=== PATIENT | female | born 1985 | race Caucasian/White ===

== ENCOUNTER 2019-07-20 22:17 | Inpatient (IN) | payer MEDICAID, SELFPAY ==
[2014-02-19 20:16] VITALS: BMI 21.2
[2019-07-20 21:44] VITALS: BMI 29.1
[2019-07-20 22:13] LABS: ROM Internal Control Test YES-OK TO RESULT pt. (Internal QC)
[2019-07-20 22:14] LABS: ROM Patient Test POSITIVE (Negative)
[2019-07-20] MEDS: Lactated Ringers 1,000 ML 50 ML IV (23:00)
[2019-07-20 23:48] LABS: Absolute Lymphocyte Count 2.04 X10^3/uL (0.83-4.51); Absolute Neutrophil Count 9.7 X10^3/uL (2.0-7.7); Basophil# 0.03 X10^3/uL; Basophil% 0.2 % (0-1); Eosinophil# 0.09 X10^3/uL; Eosinophils% 0.7 % (0-5); Hematocrit 34.3 % (37-47); Hemoglobin 11.4 g/dL (12.0-15.0); Lymphocyte # 2.04 X10^3/ul (4.0); Lymphocyte % 15.8 % (19-41); Mean Corp Hgb Conc 33.2 g/dL (32-36); Mean Corpuscular Volume 90.3 fL (81-99); Mean Platelet Vol. 11.1 fl (6.2-12.0); Monocyte# 0.96 X10^3/uL; Monocyte% 7.4 % (0-10); NRBC Flagged by Analyzer 0 % (0-5); Neutrophil # 9.68 X10^3/uL (2.7-7.7); Platelet Count 201 K/mm3 (150-450); RBC Distribution Width CV 13.3 % (11.6-14.6); RBC Distribution Width SD 43.9 fl (35.1-43.9); White Blood Count 12.9 K/mm3 (4.4-11.0)
[2019-07-21] MEDS: Oxytocin 30 units/NS 500 ml 30 UNITS/500 ML IV.SOLN IV (01:25)
[2019-07-21] MEDS: Lactated Ringers 500 ML 999 ML IV (04:33)
--- NOTE | 2019-07-21 05:02 | HP.PCM_ITS ---
History Date of Admission: 07/20/19 Final CJ: 07/28/19 Final CJ Source: US <20 weeks Gestational age: 39 Weeks and 0 Days History of this : This is a 34 year-old, 3 para 2 who presents at 38-6/7 weeks on 07/20/2019 complaining of rupture membranes. She was found to be ruptured. She is not having regular contractions. She denied any gross vaginal bleeding or leaking of fluid. was complicated to date by an unexplained elevated AFP. Patient has been receiving nonstress test. She had an ultrasound at 36 weeks which revealed an AGA fetus with normal amniotic fluid volume. Previous obstetrical history is significant for 2 Full-term vaginal deliveries in the past, 6 pounds 2 ounces and 6 pounds 4 ounces without significant complications. She was induced due to oligohydramnios with both of them. Allergies No Known Allergies Allergy (Verified 07/21/19 00:26) Home Medications: Home Medications Prenatabs FA 1 tab PO DAILY 07/20/19 Smoking Status: Never smoker Number of Fetus(es): 1 NST - FHR Rate Baby A Baseline: normal Variability:: Moderate Accelerations:: 15 x 15 FHR Category:: Category I - at admission Uterine Activity:: no regular ctxs upon admission History Past Pregnancies: Past Pregnancies Delivery Date Name GA/ Weeks Outcome Route Wt Infant Sex Labor Length Anesthesia Delivery Location Provider FOB Expected Infant Delivery Method: Spontaneous Vaginal Review of Systems Constitutional: Denies: Chills, Fever Eyes: Denies: Blurred vision Cardiovascular: Denies: Chest Pain Respiratory: Denies: Cough Gastrointestinal: Denies: Abdominal Pain, Nausea Genitourinary: Denies: Dysuria Neurological: Denies: Blurred vision, Change in Speech, Slurred speech, Confusion Physical Exam General: Alert, Cooperative, No apparent distress Cardiovascular: Regular rate Lungs: Clear to auscultation Abdomen: Soft, Non-Distended, Gravid Extremities:: No edema Neurological: Cranial nerves II-XII grossly intact CITIZEN PARTICIPATION SPECIALIST: Normal external genitalia Estimated gestational size: Appropriate for gestational size Presentation: Cephalic Cervix Dilation (cm): 2 - at admission Station: -2 Effacement (%): 70 Assessment/Plan This is a 34 year-old, 3 para 2 at 38-6/7 weeks upon admission, now at 39 weeks with spontaneous rupture membranes. Patient did not enter spontaneous labor. Pitocin induction was initiated. Risk benefits and alternatives to this were discussed with the patient, questions were answered to her satisfaction she desired to proceed. Estimated weight is less than 4000 g clinically and pelvis is clinically adequate to expect vaginal delivery. May have epidural, Nubain or nitrous oxide as needed for pain control.
[2019-07-21] MEDS: fentaNYL-bupivacaine (epidural) 100 ML BAG EPIDURAL (05:31)
[2019-07-21] MEDS: Lactated Ringers 1,000 ML 200 ML IV (05:53)
[2019-07-21] MEDS: Oxytocin 30 units/NS 500 ml 30 UNITS/500 ML IV.SOLN 334 UNITS IV (10:20)
--- NOTE | 2019-07-21 10:32 | PCM.OPRPT ---
Vaginal Delivery Maternal Presentation: Medically Indicated Induction Method of Induction: Pitocin Medical Reason for Induction: Premature Rupture of Membranes Amniotic Membrane Rupture Type: Spontaneous at home Amniotic Fluid Description: Clear Final CJ: 07/28/19 Final CJ Source: US <20 weeks Gestational age: 39 Weeks and 0 Days Date of Procedure: 07/21/19 Pre-Operative Diagnosis: labor Post-Operative Diagnosis: same Surgery/ Procedure Performed: Spontaneous Vaginal Delivery Type of Anesthesia: Epidural Description of Procedure: A vigorous male infant was delivered [FAITH] over intact perineum. The remainder the infant was delivered with maternal pushing and gentle traction only in less than 15 seconds. The Pitocin infusion was initiated for active management of the third stage. The cord was clamped and cut [after 1 minute]. The infant was attended to by the waiting nursing staff. The placenta was delivered spontaneously and intact. The cervix and vagina were intact. Sponge and needle counts were correct. A vaginal sweep was completed by me. Presentation: FAITH Placental Delivery Description: Spontaneous Placenta Disposition: [facility] Cord Vessel Description: 3 Vessels Cord Entanglement: None Drain: Colon to straight drain Estimated Blood Loss: 200 Infant A gender: Male (1 minute): 8 (5 minute): 9 Episiotomy Description: None Laceration: None Medications given after delivery: IV Pitocin Complications: None
[2019-07-21 15:30] VITALS: BP 126/64; PULSE 94; RESP 16; TEMP 37.3; O2SAT 98
[2019-07-21 20:00] VITALS: BP 118/68; PULSE 83; RESP 18; TEMP 36.4
[2019-07-22 00:16] VITALS: BP 105/55; PULSE 68; RESP 16; TEMP 37.2; O2SAT 97
[2019-07-22 04:12] VITALS: BP 119/75; PULSE 78; RESP 18; TEMP 37.1; O2SAT 96
[2019-07-22 08:30] VITALS: BP 135/81; PULSE 79; RESP 14; TEMP 37.1
--- NOTE | 2019-07-22 08:38 | PCM.PN.OB ---
Subjective: pain well controlled. Average lochia - Physical Exam Vitals/I&O's: Vital Signs Temp Pulse Resp BP Pulse Ox 98.7 F 78 18 119/75 96 07/22/19 04:12 07/22/19 04:12 07/22/19 04:12 07/22/19 04:12 07/22/19 04:12 Oxygen Delivery Method Room Air Weight: 86.9 kg Body Mass Index (BMI) 29.1 Intake and Output for Last 24 Hours 07/20/19 07/21/19 07/22/19 23:59 23:59 23:59 Intake Total 3555.17 / 3555.17 Output Total 3200 / 3200 Balance 355.17 / 355.17 General: Alert, Cooperative, No apparent distress Current Medications Acetaminophen (Tylenol) 1,000 mg PO Q8H PRN PRN PRN Reason: Pain Score 1-3/10 Bisacodyl (Dulcolax) 10 mg RECTAL UD PRN PRN Reason: If no BM Dibucaine (Dibucaine) 1 applic TOPICAL TID PRN PRN; Protocol PRN Reason: Discomfort Hydrocortisone (Hytone) 1 applic TOPICAL TID PRN PRN; Protocol PRN Reason: Discomfort Methylergonovine Maleate (Methergine) 0.2 mg IM X1 PRN PRN Reason: Excess bleeding/uterine atony Naproxen (Naprosyn) 500 mg PO Q8H PRN PRN PRN Reason: Pain Score 1-3/10 Ondansetron HCl (Zofran) 4 mg IV Q4H PRN PRN PRN Reason: Nausea Prochlorperazine Edisylate (Compazine Iv) 10 mg IV Q6H PRN PRN PRN Reason: NAUSEA/VOMITING Senna/Docusate Sodium (Senokot-S, Eloisa-Colace) 1 - 2 tablet PO DAILY PRN PRN PRN Reason: Constipation Simethicone (Mylicon) 80 mg PO PCHS PRN PRN Reason: Indigestion/Stomach pain Sodium Chloride () 5 - 15 ml IV UD PRN PRN Reason: SALINE FLUSH Medical Necessity - Tobacco Use Smoking Status: Never smoker Assessment/Plan PPD#1 doing well routine care likely d/c tomorrow
[2019-07-22] MEDS: Senna/Docusate Sodium 1 Tablet PO (10:32)
[2019-07-22 13:45] VITALS: BP 139/65; PULSE 90; RESP 18; TEMP 37.4
[2019-07-22 20:00] VITALS: BP 123/73; PULSE 98; RESP 16; TEMP 37
[2019-07-23 01:56] VITALS: PULSE 74; RESP 16; TEMP 37
[2019-07-23 07:55] VITALS: BP 119/71; PULSE 81; RESP 16; TEMP 36.9; O2SAT 99
--- NOTE | 2019-07-23 09:06 | PCM.PN.OB ---
Subjective: No complaints - Physical Exam Vitals/I&O's: Vital Signs Temp Pulse Resp BP Pulse Ox 98.5 F 81 16 119/71 99 07/23/19 07:55 07/23/19 07:55 07/23/19 07:55 07/23/19 07:55 07/23/19 07:55 Oxygen Delivery Method Room Air Weight: 191 lb 9.307 oz Body Mass Index (BMI) 29.1 Intake and Output for Last 24 Hours 07/21/19 07/22/19 07/23/19 23:59 23:59 23:59 Intake Total 3555.17 / 3555.17 Output Total 3200 / 3200 Balance 355.17 / 355.17 General: Alert, Oriented x3 Abdomen: Soft, Non Tender, Non-Distended - ff mid & below umb Extremities: No Calf Tenderness Current Medications Acetaminophen (Tylenol) 1,000 mg PO Q8H PRN PRN PRN Reason: Pain Score 1-3/10 Bisacodyl (Dulcolax) 10 mg RECTAL UD PRN PRN Reason: If no BM Dibucaine (Dibucaine) 1 applic TOPICAL TID PRN PRN; Protocol PRN Reason: Discomfort Hydrocortisone (Hytone) 1 applic TOPICAL TID PRN PRN; Protocol PRN Reason: Discomfort Methylergonovine Maleate (Methergine) 0.2 mg IM X1 PRN PRN Reason: Excess bleeding/uterine atony Naproxen (Naprosyn) 500 mg PO Q8H PRN PRN PRN Reason: Pain Score 1-3/10 Ondansetron HCl (Zofran) 4 mg IV Q4H PRN PRN PRN Reason: Nausea Prochlorperazine Edisylate (Compazine Iv) 10 mg IV Q6H PRN PRN PRN Reason: NAUSEA/VOMITING Senna/Docusate Sodium (Senokot-S, Eloisa-Colace) 1 - 2 tablet PO DAILY PRN PRN PRN Reason: Constipation Last Admin: 07/22/19 10:32 Dose: 2 tablet Documented by: Simethicone (Mylicon) 80 mg PO PCHS PRN PRN Reason: Indigestion/Stomach pain Sodium Chloride () 5 - 15 ml IV UD PRN PRN Reason: SALINE FLUSH Medical Necessity - Tobacco Use Smoking Status: Never smoker Assessment/Plan PPD#2 D/c home
--- NOTE | 2019-07-23 09:12 | DCINST_ITS ---
Discharge Diet: No Restrictions Discharge Activity: May Drive, May Shower May resume sexual activity in: 6 weeks Weight Bearing Status: Weight bearing as tolerated Additional Instructions: If you experience any of the following, contact your healthcare provider. * Bleeding that soaks a pad every hour for 2 hours * Fever 100.4 or higher * Unrelieved incision or abdominal pain * Swelling, redness, discharge or bleeding from your incision or episiotomy site * Your incision begins to separate * Problems urinating (including inability to urinate or burning while urinating). * Visual changes * Severe headache * Flu-like symptoms * Pain or redness in one of both of your breasts * Pain, warmth, tenderness or swelling in your legs, especially the calf area * Frequent nausea and vomiting * Symptoms of depression or anxiety If you experience any of the following, call 911 or go to the nearest Emergency Room. * Chest pain * Problems breathing * Seizure activity * Partial or complete paralysis of a body part, slurred speech, weakness or drooping of the face, or a sudden inability to walk or hold your balance Allergies/Adverse Reactions: Allergies No Known Allergies Allergy (Verified 07/21/19 00:26) Medications to take at Discharge Prenatabs FA 1 tab PO DAILY 07/20/19 Primary Care Physician: Care Physician,No Primary [Primary Care Provider] - Test Results: Test results from this visit will be discussed in further detail at your follow- up appointment, if applicable.
--- NOTE | 2019-07-23 09:12 | PCM.DCVAG ---
Discharge Diet: No Restrictions Discharge Activity: May Drive, May Shower May resume sexual activity in: 6 weeks Weight Bearing Status: Weight bearing as tolerated Additional Instructions: If you experience any of the following, contact your healthcare provider. Bleeding that soaks a pad every hour for 2 hours Fever 100.4 or higher Unrelieved incision or abdominal pain Swelling, redness, discharge or bleeding from your incision or episiotomy site Your incision begins to separate Problems urinating (including inability to urinate or burning while urinating). Visual changes Severe headache Flu-like symptoms Pain or redness in one of both of your breasts Pain, warmth, tenderness or swelling in your legs, especially the calf area Frequent nausea and vomiting Symptoms of depression or anxiety If you experience any of the following, call 911 or go to the nearest Emergency Room. Chest pain Problems breathing Seizure activity Partial or complete paralysis of a body part, slurred speech, weakness or drooping of the face, or a sudden inability to walk or hold your balance Allergies/Adverse Reactions: Allergies No Known Allergies Allergy (Verified 07/21/19 00:26) Medications to take at Discharge Prenatabs FA 1 tab PO DAILY 07/20/19 Primary Care Physician: Care Physician,No Primary [Primary Care Provider] - Test Results: Test results from this visit will be discussed in further detail at your follow-up appointment, if applicable.
[2019-07-23 14:00] VITALS: BP 118/80; PULSE 85; TEMP 36.9
== END 2019-07-23 16:50 | disposition home or self-care (01) | DRG 560 ==
LOC: WPOUT 22:18 → WP 07-21 07:35
PROVIDERS: Admitting Provider Obstetrics & Gynecology; Referring Provider Obstetrics & Gynecology; Visit Provider Obstetrics & Gynecology
DX: O42.02 Full-term premature rupture of membranes, onset of labor within 24 hours of rupture (principal); Z3A.39 39 weeks gestation of pregnancy; Z37.0 Single live birth
CPT/HCPCS: 59025; 59050; 84112; 85025; 86850; 86900; 86901; 99218; J7120; G0378

== ENCOUNTER 2023-04-16 07:20 | Outpatient (CLI) | payer MEDICAID, SELFPAY ==
[2023-04-16 07:26] VITALS: BMI 33.7
[2023-04-16 07:30] VITALS: TEMP 36.6
[2023-04-16 07:31] VITALS: BP 136/89; PULSE 110; PULSE 111; O2SAT 98
[2023-04-16] MEDS: Lactated Ringers 1,000 ML 125 ML IV (07:35)
== END 2023-04-16 09:00 | disposition home or self-care (01) ==
LOC: WPOUT 07:23 → WP 07:24
PROVIDERS: Referring Provider Obstetrics & Gynecology; Visit Provider Obstetrics & Gynecology
DX: O32.1XX0 Maternal care for breech presentation, not applicable or unspecified (principal); Z3A.37 37 weeks gestation of pregnancy; Z79.82 Long term (current) use of aspirin
CPT/HCPCS: 96365; 96366; 59025; 59050; 59412; 76815; 99221; J7120; G0378

== ENCOUNTER 2023-04-30 09:35 | Inpatient (IN) | payer MEDICAID, SELFPAY ==
--- NOTE | 2023-04-20 11:52 | HP.PCM.OB_ITS ---
HPI - General General Date of Admission: 04/30/23 Date of Service: 04/30/23 HPI Narrative HPI: The patient is a 38 year old female presenting for pre-operative visit. She is scheduled for c-s and bilateral salpingectomy, for breech and sterilization on 04/30/23. Procedure discussed along with risks, benefits and complications. Other alternatives discussed for management. Consent form signed? Yes. ? ? PAST MEDICAL HISTORY PAST MEDICAL HISTORY Diagnosis Date ? Allergic rhinitis, cause unspecified ? ? Allergic rhinitis ? Anemia ? ? Chlamydia ? ? ? PAST SURGICAL HISTORY PAST SURGICAL HISTORY Procedure Laterality Date ? COLONOSCOPY FLX DX W/COLLJ SPEC WHEN PFRMD ? 12/02/12 ? Colonoscopy ? ? ? CURRENT MEDICATIONS Current Outpatient Medications Medication Sig Dispense Refill ? aspirin, enteric coated (ASPIRIN, ENTERIC COATED) 81 mg EC tablet Take 2 tablets by mouth once daily. 60 tablet 3 ? Prenat Vit Comb.85-Ilqj-BK-DHA (VITAFOL-OB+DHA) 65-1-250 mg Take 1 Packet by mouth once daily. 30 Kit 11 ? No current facility-administered medications for this visit. ? ? ALLERGIES: Dust, Grass Pollen, and Seasonal [Other] ? PERSONAL HISTORY: SOCIAL HISTORY Social History ? Tobacco Use ? Smoking status: Never ? Smokeless tobacco: Never Vaping Use ? Vaping Use: Never used Substance Use Topics ? Alcohol use: No ? Drug use: No ? FAMILY HISTORY: FAMILY HISTORY FAMILY HISTORY Problem Relation Age of Onset ? Hypertension Mother ? ? No Known Problems Father ? ? No Known Problems Sister ? ? No Known Problems Brother ? ? Heart Maternal Grandmother ? ? pacemaker for irregularity,hypertension ? Hypertension Maternal Grandmother ? ? No Known Problems Maternal Grandfather ? ? No Known Problems Paternal Grandmother ? ? No Known Problems Paternal Grandfather ? ? Asthma Daughter ? ? Asthma Son ? ? No Known Problems Son ? ? Hypertension Maternal Uncle ? ? Prostate Cancer Other ? ? great gf ? Cancer Other ? ? pggf ? other (myocardial infarction) Other ? ? mggm ? ? REVIEW OF SYMPTOMS: GENERAL: denies fevers or chills ENDOCRINOLOGY: has not been on steroids Cardiology : denies palpitations or chest pain Respiratory: denies SOB or cough Hematology: denies history of prolonged bleeding or easy bruising or VTE Allergy: Denies history of personal or family history of allergy to anesthesia ? PHYSICAL EXAMINATION: ? VITALS: Last menstrual period 07/30/2022, currently . ? GENERAL: The patient is well nourished, well hydrated in no acute distress. , The patient is oriented to time, place, and person. NECK: Supple. No lynphadenopathy, normal thyroid, no thyromegaly. LUNGS: Clear to auscultation bilaterally. no wheezes, rhonchi or rales HEART: Regular rate and rhythm, Normal heart sounds, and No murmurs or gallops ABd- soft, nontender, gravid ? IMPRESSION: Estimated Date of Delivery: 05/06/23 complete breech, requests sterilization ? PLAN: The risks/benefits/alternatives and personal involved for the planned c- section and bilateral salpingectomy or tubal sterilization were reviewed with the patient. Her questions were answered to her satisfaction and she desires to proceed. Consent was signed. I reviewed with her postop instructions and expectations. ? ? I have reviewed and updated past medical and surgical history, medications and allergies PFSH [facility] Home Medications Prenatabs FA 1 tab PO DAILY 07/20/19 [History Last Taken 04/15/23] aspirin 81 mg capsule 81 mg PO DAILY 04/16/23 [History Last Taken 04/15/23] Allergy/AdvReac Type Severity Reaction Status Date / Time No Known Allergies Allergy Verified 04/16/23 07:43 Social History Smoking Status: Never smoker History Elective abortions Hx Para 2 Spontaneous abortions Hx # Term Pregnancies Ectopic pregnancies Hx # Pregnancies Multiple births # of living children Labs Labs Labs: Blood Type O POSITIVE Antibody Screen NEGATIVE Hct 34.3 % (37-47) L Hgb 11.4 g/dL (12.0-15.0) L Rhogam given: No
[2023-04-30] VITALS (16 sets, daily range): BP systolic 83–119; BP diastolic 40–68; PULSE 64–96; RESP 15–18; TEMP 36.1–36.9; O2SAT 95–100; BMI 33.7
--- NOTE | 2023-04-30 | FALS_PTH ---
PATIENT: AYRI CUEVAS LOC: [facility] U#:[id number] AGE/SX: 38/F ROOM: WP004 RE04/30/[address]: Dr. Toshia Mcdowell MD : 1985 BED: 1 DIS: 05/02/2023 SPEC #: [id number] RECD: 04/30/23 14:06 STATUS: ADIS CARLY #: [id number] SARAH: 04/30/23 00:[address]: Toshia Mcdowell DEPT: SURGICAL PATHOLOGY RECD BY: Tera Rincon ENTERED: 04/30/23 14:06 SP TYPE: FALL TUBES OTHR DR: No Primary Care Phys Tissues: Fallopian tube Procedures: Surgery Specimen Level II HEADER OPERATION: Tubal PRE-OP DIAGNOSIS: Tubal TISSUE SUBMITTED: Fallopian tube MICROSCOPIC DIAGNOSIS Bilateral fallopian tubes, salpingectomy: Bilateral fallopian tubes, no pathologic diagnosis. Right paratubal cyst. SJ: 05/01/2023 MICROSCOPIC DESCRIPTION Slides are reviewed. GROSS DESCRIPTION Received in fixative is one container labeled with the patient's name and designated stitch right tube. The specimen consists of bilateral fallopian tubes including fimbrial ends with right tube is identified with a suture. The right fallopian tube measures 7.0 cm in length and 1.0cm in diameter. The left fallopian tube measures 5.0 cm in length and 1.0cm in diameter. Sections reveal unremarkable cut surfaces. Right fallopian tube also shows a paratubal cyst filled with clear fluid measuring 0.5 cm in greatest dimension. Welding Manager sections are submitted in two cassettes 1 - Right fallopian tube and paratubal cyst, 2 - left fallopian tube. / SJ: TC:4 CPT: 40355 x2
[2023-04-30] MEDS: Lactated Ringers 1,000 ML 999 ML IV (09:55)
[2023-04-30 10:15] LABS: Absolute Lymphocyte Count 1.98 X10^3/uL (0.83-4.51); Absolute Neutrophil Count 8.2 X10^3/uL (2.0-7.7); Basophil# 0.02 X10^3/uL; Basophil% 0.2 % (0-1); Eosinophil# 0.05 X10^3/uL; Eosinophils% 0.5 % (0-5); Hematocrit 38.2 % (37-47); Hemoglobin 12.6 g/dL (12.0-15.0); Lymphocyte # 1.98 X10^3/ul (0.83-4.51); Lymphocyte % 18.1 % (19-41); Mean Corpuscular Hgb 29.7 pg (27.0-32.0); Mean Corpuscular Volume 90.1 fL (81-99); Mean Platelet Vol. 10.7 fl (6.2-12.0); Monocyte# 0.61 X10^3/uL; Monocyte% 5.6 % (0-10); NRBC Flagged by Analyzer 0 % (0-5); Neutrophil # 8.19 X10^3/uL (2.7-7.7); Neutrophil % 74.6 % (47-70); Platelet Count 222 K/mm3 (150-450); RBC Distribution Width CV 13.6 % (11.6-14.6); RBC Distribution Width SD 44.7 fl (35.1-43.9); Red Blood Count 4.24 M/mm3 (4.2-5.4)
[2023-04-30] MEDS: Acetaminophen 500 MG Tablet 1000 MG PO ×3 (10:20→22:23)
[2023-04-30] MEDS: Lactated Ringers 1,000 ML 150 ML IV (10:41)
[2023-04-30 11:09] LABS: Syphilis Antibodies Non-reactive
[2023-04-30] MEDS: Sodium Citrate/Citric Acid 30 ML UDC PO (11:39)
[2023-04-30] MEDS: Cefazolin 2 GM in 0.9% Normal Saline 100 ML IV (12:12)
--- NOTE | 2023-04-30 12:16 | EX.PCM.OBRPT ---
Assessment & Plan (1) Breech presentation with problem: (2) 39 weeks gestation of : (3) Sterilization: Maternal Data Information Final CJ: 05/06/23 Gestational age: 39 1/7 Details Operative Information Date of Procedure: 04/30/23 Pre-Operative Diagnosis: breech Post-Operative Diagnosis: same Indications for : Desires elective sterilization Classification: Scheduled Procedure Type: low transverse (with bilteral salpingectomy) manager sales training #1: Alicja Vann Type of Anesthesia: Spinal Anesthesiologist: Nathan Harding Special Medications: duramorph Antibiotic Given: Ancef 2 grams IV x1 Drain: Colon to straight drain Estimated Blood Loss: 600 Fluids Replaced: 1000 Procedure Start Time: : Procedure Stop Time: 12:52 Time of Delivery: :24 Findings Description of Procedure: The patient was taken to the operating room. She was prepped and draped in the dorsal supine position with a leftward tilt. A Pfannenstiel skin incision was made approximately 2 cm above the symphysis pubis and carried through to underlying layer fascia with the scalpel. The fascia was incised incised in the midline and extended laterally with blunt dissection. The fascia was dissected off the rectus muscles with blunt dissection. The rectus muscles were in the midline and the peritoneum was entered bluntly. The peritoneal incision was stretched and the bladder blade was placed. The uterine incision was made in a low transverse fashion with the scalpel and extended superiorly and inferiorly with blunt dissection. The amniotic membranes were ruptured bluntly and clear amniotic fluid returned. The 's buttocks were delivered through the incision and the legs were swept out individually. The was turned to back up and the arms were swept out individually and the head was delivered with gentle fundal pressure without traction in less than 15 seconds. The mouth and nares were bulb suctioned. The cord was clamped and cut as the was stimulated. Cord clamping was delayed. The infant was handed off to the waiting nursing staff. The placenta was delivered with fundal massage and gentle traction in the standard fashion. The uterus was exteriorized and cleared of all clots and debris. The cervix was dilated with a ring forcep. The uterine incision was closed with #1 Vicryl in a running locked fashion. 2 [id number] sutures were needed in the left apex of the incision to obtain these hemostasis. The incision was examined and was found to be hemostatic. The uterus was placed back into the peritoneal cavity and hemostasis was again confirmed. The left tube was identified and followed out to the fimbriated end. The antimesenteric portion of the tube was clamped, sealed and transected with the LigaSure device. The tube was then acutely amputated from the cornual insertion to the uterus with the LigaSure device and hemostasis was noted. The same procedure was performed on the contralateral side and excellent hemostasis was noted. The uterine incision was reexamined and still found to be hemostatic. The rectus muscles were examined and any bleeding was Bovie cauterized. The parietal peritoneum and rectus muscles were closed en bloc with an 0 Vicryl running suture. The rectus fascia was examined and any bleeding was Bovie cauterized and the rectus fascia was closed with 1 Vicryl suture in a running standard fashion. The subcutaneous tissue was examining and any bleeding was Bovie cauterized. The subcutaneous tissue was reapproximated with 3-0 Vicryl suture. The skin was closed in a subcuticular fashion by the ENGRAVER OPTICAL FRAMES with me present in the labor and delivery suite. I performed the remainder of the procedure with assistance. All sponge, lap, and needle counts were correct. The patient was taken to her room for recovery in a stable condition. Presentation: Positive for Complete Breech Amniotic Membrane Rupture Type: Artificial Amniotic Fluid Description: Clear Placental Delivery Description: Expressed Placenta Disposition: [facility] Specimen(s) Sent to Pathology: bilateral fallopian tubes Cord Vessel Description: 3 Vessels Cord Entanglement: None A Gender: Female (Brie) (1 minute): 8 (5 minute): 9 Delayed Cord Clamping: Yes Complications Complications: none
[2023-04-30] MEDS: Oxytocin 15 Units/NS 250ml 15 UNITS/250 ML IV.SOLN 83 UNITS IV (13:20)
--- NOTE | 2023-04-30 13:30 | NURSING ---
1305 jcoteat in the room with bp of 87/43- pt asymptomatic- instructed to bolus the pt with the rest of the lr bag that is currently infusing about 250 cc
[2023-04-30] MEDS: Ketorolac 30 MG/ML Syringe IV ×2 (14:07→20:53)
[2023-04-30] MEDS: Lactated Ringers 1,000 ML 100 ML IV (16:17)
[2023-04-30] MEDS: 0.9% Saline Lock 10 ML Syringe IV (20:54)
[2023-05-01] VITALS (7 sets, daily range): BP systolic 104–123; BP diastolic 55–70; PULSE 64–89; RESP 15–16; TEMP 36.3–36.9; O2SAT 96–98
[2023-05-01] MEDS: Ketorolac 30 MG/ML Syringe IV ×2 (03:11→09:14)
[2023-05-01] MEDS: Acetaminophen 500 MG Tablet 1000 MG PO ×3 (04:40→18:26)
[2023-05-01 04:51] LABS: Hematocrit 30.2 % (37-47); Hemoglobin 9.9 g/dL (12.0-15.0); Mean Corp Hgb Conc 32.8 g/dL (32-36); Mean Corpuscular Hgb 30.1 pg (27.0-32.0); Mean Corpuscular Volume 91.8 fL (81-99); Mean Platelet Vol. 10.2 fl (6.2-12.0); Platelet Count 172 K/mm3 (150-450); RBC Distribution Width CV 13.8 % (11.6-14.6); RBC Distribution Width SD 46.5 fl (35.1-43.9); Red Blood Count 3.29 M/mm3 (4.2-5.4); White Blood Count 12.2 K/mm3 (4.4-11.0)
--- NOTE | 2023-05-01 08:22 | PN.OBGYN_ITS ---
Subjective Subjective Patient seen at bedside. Feeling well. Pain is controlled with Motrin and Tylenol PO. Patient ambulating and voiding without difficulty. Passing flatus. Denies any CP, SOB or dizziness. Objective Data Objective Data Vital Signs: Vital Signs Temp Pulse Resp BP Pulse Ox O2 Del Method 97.3 F L 64 15 107/69 96 Room Air 05/01/23 03:00 05/01/23 03:00 05/01/23 03:00 05/01/23 03:00 05/01/23 03:00 05/01/23 03:00 Oxygen Delivery Method Room Air Weight: 222 lb Body Mass Index (BMI) 33.7 Intake & Output: Intake and Output for Last 24 Hours 04/29/23 04/30/23 05/01/23 23:59 23:59 23:59 Intake Total 1590.05 / 1590.05 843.33 / 843.33 Output Total 700 / 700 800 / 800 Balance 890.05 / 890.05 43.33 / 43.33 Lab / Micro Data 05/01/23 04:45 Labs: Laboratory Results - last 24 hr 04/30/23 09:55: WBC 11.0, RBC 4.24, Hgb 12.6, Hct 38.2, MCV 90.1, MCH 29.7, MCHC 33.0, RDW Std Deviation 44.7 H, RDW Coeff of Odalys 13.6, Plt Count 222, MPV 10.7, Immature Gran % (Auto) 1.000 H, Neut % (Auto) 74.6 H, Lymph % (Auto) 18.1 L, [place] % (Auto) 5.6, Eos % (Auto) 0.5, Baso % (Auto) 0.2, Absolute Neuts (auto) 8.2 H, Absolute Lymphs (auto) 1.98, Nucleated RBC % 0, Syphilis Total Ab Non- reactive, Blood Type O POSITIVE, Antibody Screen NEGATIVE 05/01/23 04:45: WBC 12.2 H, RBC 3.29 L, Hgb 9.9 L, Hct 30.2 L, MCV 91.8, MCH 30.1, MCHC 32.8, RDW Std Deviation 46.5 H, RDW Coeff of Odalys 13.8, Plt Count 172, MPV 10.2 ROS Eyes Eyes: Denies blurry vision, change in vision or spots in vision ENT HEENT: Denies dizziness or headache(s) Cardiovascular Cardiovascular: Denies abdominal pain, chest pain or dyspnea Respiratory/Chest Respiratory/Chest: Denies cough, dyspnea, shortness of breath at rest or shortness of breath with exertion Gastrointestinal Gastrointestinal: Denies abdominal pain, diarrhea or vomiting Genitourinary Genitourinary: Denies change in urinary stream, difficulty urinating or dysuria Musculoskeletal Musculoskeletal: Reports none Integumentary Integumentary: Denies rash Neurologic Neurologic: Denies dizziness, headache(s), memory loss or weakness Physical Exam Narrative Dressing is dry and intact Const alert and no apparent distress General Appearance: cooperative and comfortable Exam Limitations: no limitations HEENT normocephalic Eyes General Eye: normal appearance of both eyes Neck full ROM General: normal visual inspection Chest Chest: symmetrical chest wall rise Resp normal respiratory effort and normal air movement Effort and Inspection: symmetric chest movement Auscultation: clear to auscultation bilaterally Cardio regular rate and regular rhythm GI normal to inspection, nondistended, normoactive bowel sounds Back/Spine normal ROM Extremity full ROM and no calf tenderness General Extremity: normal exam except as noted Skin no rashes or lesions noted Neuro CN's II-XII intact bilaterally Psych mental status grossly normal Assessment & Plan (1) Delivery by section: (2) Care and examination of lactating mother: PLAN: Plan POD 1 Primary C/S Pain control Routine care support Anticipate d/c home in morning
[2023-05-01] MEDS: Senna/Docusate Sodium 1 Tablet PO (09:14)
[2023-05-01] MEDS: 0.9% Saline Lock 10 ML Syringe IV (09:15)
[2023-05-01] MEDS: Ibuprofen 600 MG Tablet PO ×2 (15:09→21:01)
[2023-05-02] MEDS: Acetaminophen 500 MG Tablet 1000 MG PO ×2 (00:32→06:46)
[2023-05-02 02:25] VITALS: BP 140/73; PULSE 81; RESP 16; TEMP 36.7
[2023-05-02] MEDS: Ibuprofen 600 MG Tablet PO ×2 (02:59→08:45)
--- NOTE | 2023-05-02 07:26 | DS.PCM_ITS ---
Providers Date of Admission: 04/30/23 Primary Care Physician: No Primary Care Phys Reason For Visit: PRIMARY Diagnosis Discharge Diagnosis (1) Delivery by section: Status: Acute (2) Care and examination of lactating mother: Status: Acute Code(s): Z39.1 - Encounter for care and examination of lactating mother Medications at Discharge Home Medications Prenatabs FA 1 tab PO DAILY 07/20/19 acetaminophen 500 mg tablet 1,000 mg (2 x 500 mg) PO Q6H #0 tabs 05/02/23 ibuprofen 600 mg tablet 600 mg PO Q6H #0 tabs 05/02/23 sennosides 8.6 mg-docusate sodium 50 mg tablet (Stool Softener-Stimulant Laxative) 1 - 2 tab PO DAILY #0 tabs 05/02/23 Hospital Course Operations section Summary of Care Provided Minutes Spent on Discharge: 20 Hospital Course: Patient for scheduled, primary section. Hospital course was uneventful. Physical Exam Narrative Dressing is dry and intact Const alert and no apparent distress General Appearance: cooperative and comfortable Exam Limitations: no limitations HEENT normocephalic Eyes General Eye: normal appearance of both eyes Neck full ROM General: normal visual inspection Chest Chest: symmetrical chest wall rise Resp normal respiratory effort and normal air movement Effort and Inspection: symmetric chest movement Auscultation: clear to auscultation bilaterally Cardio regular rate and regular rhythm GI normal to inspection, nondistended, normoactive bowel sounds Back/Spine normal ROM Extremity full ROM and no calf tenderness General Extremity: normal exam except as noted Skin no rashes or lesions noted Neuro CN's II-XII intact bilaterally Psych mental status grossly normal Weight / BMI Weight Weight: 222 lb Body Mass Index (BMI) 33.7 ABG / Lab / Microbiology Data 05/01/23 04:45 D/C Instructions Discharge Diet: No restrictions May resume sexual activity in: 6-8 weeks Weight Bearing Status: Weight bearing as tolerated Lifting Restrictions: 20 lbs Call your doctor if your incision/area has: Continuous Slow Oozing, Increased Pain/ Swelling, Increased Redness, Foul Smelling Discharge and Swelling at the i ncision site Call your doctor if you observe: Fever of 101 or Higher, Inability to urinate, Using more than 1 pad per hour, Shortness of breath, Chest pain, Calf discomfort and Uncontrolled pain Remove Dressing in: 5 days Cleanse incision/area with: Soap & Water and Keep Dressing Clean & Dry Please Follow Up With: Toshia Mcdowell MD When: 1 week in office for incision check or sooner if needed 6 weeks Meaningful Use Info Meaningful Use Diagnoses (Choose all that apply): None applicable Discharge Plan Admission Admit Date/Time: 04/30/23 09:35 Primary Reason for Your Visit: Labor and Delivery Attending Provider: Toshia Mcdowell Primary Care Provider: Care Physician,[place] Primary Discharge Orders/Prescriptions Prescriptions: New sennosides-docusate sodium [Stool Softener-Stimulant Laxat] 8.6-50 mg Tablet 1 - 2 tab PO DAILY Qty: 0 0RF acetaminophen 500 mg Tablet 1,000 mg PO Q6H Qty: 0 0RF ibuprofen 600 mg Tablet 600 mg PO Q6H Qty: 0 0RF Continued Prenatabs FA 1 tab PO DAILY Discontinued aspirin 81 mg capsule 81 mg PO DAILY Referrals / Follow Up: Care Physician,No Primary [Primary Care Provider] - Disposition Disposition (needs filled in before D/C Order can be placed): Home, Self Care
[2023-05-02] MEDS: Senna/Docusate Sodium 1 Tablet PO (08:45)
[2023-05-02 08:47] VITALS: BP 107/63; PULSE 72; RESP 14; TEMP 36.6; O2SAT 96
[2023-05-05 05:55] LABS: Pathology Specimen OB SEE PATHOLOGY REPORT
== END 2023-05-02 12:00 | disposition home or self-care (01) | DRG 539 ==
PROVIDERS: Admitting Provider Obstetrics & Gynecology; Visit Provider Obstetrics & Gynecology
PROC: 10D00Z1 Extraction of Products of Conception, Low, Open Approach (ICD-10-PCS; CPT 59514; principal; 2023-04-30 11:45)
DX: O32.1XX0 Maternal care for breech presentation, not applicable or unspecified (principal); Z30.2 Encounter for sterilization; Z79.82 Long term (current) use of aspirin; Z3A.39 39 weeks gestation of pregnancy; Z37.0 Single live birth
CPT/HCPCS: 59025; 59050; 85025; 85027; 86780; 86850; 86900; 86901; 88302; 99221; J7120; A4216; G0378; J2405

== ENCOUNTER → 2023-04-30 | Outpatient (CLI) | payer MEDICAID, SELFPAY ==
--- NOTE | 2023-04-16 13:59 | OB.TRI.NOTE ---
HPI - General General Date of Admission: 04/16/23 Date of Service: 04/16/23 Chief Complaint: breech HPI Narrative YARI CUEVAS, is a 38 F who presents for attempted ECV. No new c/o; No regular ctxs. Good FM. Maternal Data Information Final CJ: 05/06/23 Gestational age: 37 1/7 PFSH PFS Home Medications Prenatabs FA 1 tab PO DAILY 07/20/19 [History Last Taken 04/15/23] aspirin 81 mg capsule 81 mg PO DAILY 04/16/23 [History Last Taken 04/15/23] Allergy/AdvReac Type Severity Reaction Status Date / Time No Known Allergies Allergy Verified 04/16/23 07:43 Social History Smoking Status: Never smoker History Elective abortions Hx Para 2 Spontaneous abortions Hx # Term Pregnancies Ectopic pregnancies Hx # Pregnancies Multiple births # of living children NST FHR Rate Baby A Baseline: normal Variability:: Moderate Accelerations:: 15 x 15 Decelerations:: None NST Reactive:: Yes FHR Category:: Category I Uterine Activity:: no regular ctxs Assessment & Plan (1) 37 weeks gestation of : PLAN: R/B/A/P to ECV reviewed with patient, questions answered and consent signed. Brief US confirms breech. Grossly normal AFV. NST reactive. Attempted forward roll x 2, was able to convert fetus to transverse but it converted back. In between attempts FHTs were 130 bpm. Attempted backward roll and unable to move fetus significantly. At end of the procedure FHTs 140 bpm. Another NST performed. D/ wher recommend c/s at 39 + weeks unless baby converts to vtx spontaneously. She states understanding and agreement w/ plan. (2) Breech presentation with problem:
== END | disposition home or self-care (01) ==
LOC: PAT 05-07 14:36
PROVIDERS: Visit Provider Obstetrics & Gynecology
DX: Z00.00 Encounter for general adult medical examination without abnormal findings (principal)